=== PATIENT | male | born 1960 | race Caucasian/White ===

== ENCOUNTER 2018-08-28 07:49 | Emergency (ER) | payer BC | END 2018-08-28 09:11 | disposition home or self-care (01) | LOC: E/R 07:49 | DX: T83.021A Displacement of indwelling urethral catheter, initial encounter (principal); E11.9 Type 2 diabetes mellitus without complications; I10 Essential (primary) hypertension; Y73.2 Prosthetic and other implants, materials and accessory gastroenterology and urology devices associated with adverse incidents; Z46.6 Encounter for fitting and adjustment of urinary device | CPT/HCPCS: 51702; 99283-25 ==

== ENCOUNTER 2018-08-29 13:52 | Emergency (ER) | payer BC ==
[2018-08-29 14:44] LABS: ADD UMIC NO; UR ASCORBIC ACID NEGATIVE (NEGATIVE); UR BILIRUBIN (Dip) NEGATIVE (NEGATIVE); UR BLOOD (Dip) NEGATIVE (NEGATIVE); UR CLARITY CLEAR (CLEAR); UR COLOR YELLOW (YELLOW); UR GLUCOSE (Dip) NEGATIVE (NEGATIVE); UR KETONES (Dip) NEGATIVE (NEGATIVE); UR LEUKOCYTE ESTERASE (Dip) NEGATIVE Leu/ul (NEGATIVE); UR NITRITE (Dip) NEGATIVE (NEGATIVE); UR SPECIFIC GRAVITY (Dip) 1.006 (1.003-1.030); UR TOTAL PROTEIN (Dip) NEGATIVE (NEGATIVE); UR UROBILINOGEN (Dip) NEGATIVE (NEGATIVE)
[2018-08-29 15:04] LABS: ADD MAN DIFF? NO
[2018-08-29 15:27] LABS: INR 2.17; PROTIME 24.7 Sec (11.9-14.9); PT RATIO 1.9
[2018-08-29 15:28] LABS: PARTIAL THROMBOPLASTIN TIME 39.8 Sec (23.0-35.0)
[2018-08-29 16:01] LABS: ABNORMAL IP MESSAGE 1; BASOPHILS % 0.5 % (0.0-2.0); EOSINOPHILS # 0.1 10^3/ul (0.0-0.5); EOSINOPHILS % 3.5 % (0.0-7.0); HEMATOCRIT 25.7 % (42.0-52.0); HEMOGLOBIN 8.2 g/dl (14.0-18.0); LYMPHOCYTES # 0.7 10^3/ul (0.8-2.9); LYMPHOCYTES % 18.3 % (15.0-51.0); MEAN CORPUSCULAR HEMOGLOBIN 30.9 pg (29.0-33.0); MEAN CORPUSCULAR HGB CONC 31.9 g/dl (32.0-37.0); MEAN PLATELET VOLUME 12.1 fl (7.4-10.4); MONOCYTE # 0.5 10^3/ul (0.3-0.9); MONOCYTES % 13.5 % (0.0-11.0); NEUTROPHIL # 2.6 10^3/ul (1.6-7.5); NEUTROPHILS % 64.2 % (39.0-77.0); PLATELET COUNT 81 10^3/UL (140-415); POSITIVE DIFF @See below; RED BLOOD COUNT 2.65 10^6/ul (4.70-6.10); RED CELL DISTRIBUTION WIDTH 18.9 % (11.5-14.5)
[2018-08-29 16:16] LABS: LIPASE 72 U/L (23-300)
[2018-08-29 16:16] LABS: AMYLASE 57 U/L (11-123)
[2018-08-29 16:18] LABS: ALANINE AMINOTRANSFERASE 37 IU/L (13-69); ALBUMIN 1.9 g/dl (3.3-4.9); ALBUMIN/GLOBULIN RATIO 0.55; ALKALINE PHOSPHATASE 138 IU/L (42-121); ANION GAP 12 (8-16); ASPARTATE AMINO TRANSFERASE 63 IU/L (15-46); BILIRUBIN,INDIRECT 1.9 mg/dl (0-1.1); BILIRUBIN,TOTAL 1.9 mg/dl (0.2-1.3); BLOOD UREA NITROGEN 5 mg/dl (7-20); CALCIUM 8.2 mg/dl (8.4-10.2); CARBON DIOXIDE 28 mmol/L (21-31); CHLORIDE 103 mmol/L (97-110); CREATININE 0.69 mg/dl (0.61-1.24); GLUCOSE 145 mg/dl (70-220); POTASSIUM 3.5 mmol/L (3.5-5.1); SODIUM 139 mmol/L (135-144); TOTAL PROTEIN 5.3 g/dl (6.1-8.1)
[2018-08-29 16:29] LABS: TROPONIN-I < 0.012 ng/ml (0.000-0.120)
== END 2018-08-29 17:30 | disposition home or self-care (01) ==
LOC: E/R 13:52
DX: N50.89 Other specified disorders of the male genital organs (principal); R33.9 Retention of urine, unspecified; I10 Essential (primary) hypertension; E11.9 Type 2 diabetes mellitus without complications; R10.9 Unspecified abdominal pain; Z79.4 Long term (current) use of insulin
CPT/HCPCS: 51702; 74176; 76870; 80053; 81003; 82150; 83690; 84484; 85025; 85610; 85730; 87086; 93005; 99285-25